=== PATIENT | male | born 1990 | race Caucasian/White ===

== ENCOUNTER 2019-01-20 11:49 | Emergency (ER) | payer OTHER ==
[~2019-01-20] VITALS: Ht 185.4 cm; Wt 104.5 kg
[2019-01-20] MEDS ORDERED: CIPRO 500MG TA500 MG PO (15:53)
[2019-01-20] MEDS ORDERED: PHENERGAN 25 TA25 MG PO (15:53)
[2019-01-20] MEDS ORDERED: NORCO 325 MG-51 TAB PO (15:53)
[2019-01-20] MEDS ORDERED: FLAGYL500 MG PO (15:53)
== END 2019-01-20 12:29 | disposition left against medical advice (07) ==
LOC: COL.ER 11:49
DX: K52.9 Noninfective gastroenteritis and colitis, unspecified (principal)

== ENCOUNTER 2019-01-20 12:59 | Emergency (ER) | payer OTHER ==
[~2019-01-20] VITALS: Ht 185.4 cm; Wt 104.5 kg
[2019-01-20 14:29] LABS: BASO % 0.2 % (0.0-2.0); EOS # 0.5 (0.0-0.7); EOS % 5.1 % (0-4.0); GRAN # 6.4 (1.4-6.5); GRAN % 66.9 % (42.2-75.2); HEMATOCRIT 43.3 % (42.0-52.0); HEMOGLOBIN 14.9 g/dl (13.5-18.0); LYMPH # 1.7 (1.2-3.4); MEAN CELL VOLUME 92 fl (80.0-100.0); MEAN CORPUSCULAR HEMOGLOBIN 32 pg (27.0-31.0); MEAN CORPUSCULAR HGB CONC 34 g/dl (33.0-37.0); MEAN PLATELET VOLUME 11.5 fl (7.4-10.4); MONO # 0.9 (0.1-0.6); MONO % 9.5 % (1.7-9.3); PLATELET COUNT 184 K/mm3 (130-400); RED BLOOD COUNT 4.72 M/mm3 (4.20-5.60); REDCELL DISTRIBUTION WIDTH-CV 12.2 % (11.5-14.5)
[2019-01-20 14:43] LABS: ALANINE AMINOTRANSFERASE 24 U/L (21-72); ALBUMIN 4.3 gm/dL (3.5-5.0); ALKALINE PHOSPHATASE 54 U/L (50-136); ANION GAP 8 mmol/L (7-16); AST,SGOT 33 U/L (15-37); BILIRUBIN,TOTAL 0.9 mg/dL (0.0-1.0); BLOOD UREA NITROGEN 20 mg/dL (9-20); CALCIUM 9.1 mg/dL (8.4-10.2); CARBON DIOXIDE 25 mmol/L (22-30); CHLORIDE 104 mmol/L (98-107); CREATININE, serum 1.04 (0.66-1.25); GLUCOSE 99 mg/dL (74-106); LIPASE 104 U/L (23-300); SODIUM 137 mmol/L (137-145); TOTAL PROTEIN 7.4 gm/dL (6.4-8.2)
[2019-01-20 14:49] LABS: C-REACTIVE PROTEIN < 0.5 mg/dL (0.0-0.9)
[2019-01-20] MEDS ORDERED: CIPRO 500MG TA500 MG PO (15:53)
[2019-01-20] MEDS ORDERED: PHENERGAN 25 TA25 MG PO (15:53)
[2019-01-20] MEDS ORDERED: NORCO 325 MG-51 TAB PO (15:53)
[2019-01-20] MEDS ORDERED: FLAGYL500 MG PO (15:53)
[2019-01-20 16:17] VITALS: BP 153/74; PULSE 60; TEMP 96.6
== END 2019-01-20 16:19 | disposition home or self-care (01) ==
LOC: COL.ER 12:59
PROVIDERS: Family Medicine
DX: K52.9 Noninfective gastroenteritis and colitis, unspecified (principal)
CPT/HCPCS: J2270; J2405; J7030; Q9967